=== PATIENT | male | born 1970 | race Caucasian/White ===

== ENCOUNTER 2021-07-17 23:36 | Emergency (ER) | payer BC ==
[~2021-07-17] VITALS: Ht 170.2 cm; Wt 85.0 kg
[2021-07-17 23:46] VITALS: BP 152/79
[2021-07-18 00:15] LABS: BASOPHILS % 1.4 % (0.0-2.0); EOSINOPHILS % 9.5 % (0.0-5.0); HEMATOCRIT. 43.1 % (42.0-52.0); HEMOGLOBIN. 15.4 g/dL (14.0-18.0); LYMPHOCYTES % 43.1 % (20.0-50.0); MEAN CORPUSCULAR HEMOGLOBIN 30.9 pg (28.0-32.0); MEAN CORPUSCULAR VOLUME 86.4 fL (80.0-94.0); MEAN PLATELET VOLUME 7.7 fl (7.4-10.4); MONOCYTES % 6.5 % (2.0-8.0); NEUTROPHILS % 39.5 % (40.0-76.0); PLATELET 279 x1000/uL (130-400); RED BLOOD CELL COUNT 4.99 mill/uL (4.7-6.1); RED CELL DISTRIBUTION WIDTH 12.8 % (11.6-14.6)
[2021-07-18 00:52] LABS: CHLORIDE 107 mEq/L (98-107)
[2021-07-18] MEDS ORDERED: LORAZEPAM 0.5MG TABLET PO ONE (01:15)
[2021-07-18] MEDS ORDERED: LORA-249 MT (01:44)
== END 2021-07-18 01:50 | disposition home or self-care (01) ==
LOC: ER 23:36
DX: R00.2 Palpitations (principal); R07.89 Other chest pain; I10 Essential (primary) hypertension
CPT/HCPCS: 36415; 71045; 80048; 85025; 93005; 99285